=== PATIENT | male | born 1980 | race Caucasian/White ===

== ENCOUNTER 2018-02-24 17:03 | Emergency (ER) | payer MEDICAID, OTHER ==
[~2018-02-24] VITALS: Ht 180.3 cm; Wt 75.0 kg
[~2018-02-24 17:03] MED LIST: NO HOME MEDS
[2018-02-24] MEDS ORDERED: LIDOcaine 1.5% w/epinephrine 1:200,000 5ml ampul IJ ONE (17:30)
[2018-02-24] MEDS ORDERED: PENI500T2 PO (17:30)
[2018-02-24] MEDS ORDERED: TETanus/Pertussis (Acell)/Diphther VAC/PF (Tdap-Adult) 0.5ml syringe IM ONE (17:30)
[2018-02-24] MEDS ORDERED: HYDR-565 PO (17:51)
[2018-02-24 18:25] VITALS: BP 124/74
== END 2018-02-24 18:26 | disposition home or self-care (01) ==
LOC: ER 17:03
DX: K04.7 Periapical abscess without sinus (principal); F17.210 Nicotine dependence, cigarettes, uncomplicated; F12.90 Cannabis use, unspecified, uncomplicated; Z90.89 Acquired absence of other organs; Z79.899 Other long term (current) drug therapy; Z60.2 Problems related to living alone
CPT/HCPCS: 41800; 90471; 90715; 99283; J3490